=== PATIENT | female | born 1970 | race Caucasian/White ===

== ENCOUNTER 2016-07-22 19:03 | Emergency (ER) | payer OTHER ==
[~2016-07-22] VITALS: Ht 175.3 cm; Wt 115.5 kg
[~2016-07-22 19:03] MED LIST: BACLOFEN20 MG PO; CLINDAMYCIN HC300 MG PO; DAILY VITAMIN1 EAC8 PO; GILENYA0.5 MG PO; LEXAPRO20 MG PO; MANDELAMINE500 MG PO; MOBIC15 MG PO; SYNTHROID25 MCG PO; VITAMIN D32000 UNIT PO; ZANAFLEX2 M1 PO
[2016-07-22 22:03] VITALS: BP 121/78
== END 2016-07-22 22:04 | disposition home or self-care (01) ==
LOC: EME → EDBD 19:03 → EME 19:03
DX: S02.2XXA Fracture of nasal bones, initial encounter for closed fracture (principal); W05.0XXA Fall from non-moving wheelchair, initial encounter; Y92.811 Bus as the place of occurrence of the external cause; G35 Multiple sclerosis
CPT/HCPCS: 70450; 70486; 99281; 99285

== ENCOUNTER → 2017-10-19 | Outpatient (CLI) | payer OTHER ==
[~2017-10-19] VITALS: Ht 175.3 cm; Wt 113.4 kg
[~2017-10-19] MED LIST changes: +BACLOFEN10 MG PO; +BUPROPION HCL75 MG PO; +DANTRIUM25 MG PO; +LEVOTHYROXINE175 MCG PO; +SYNTHROID175 MCG PO
[2017-10-19 09:59] VITALS: BP 131/93
[2017-10-19 14:13] VITALS: BP 118/60
== END | disposition home or self-care (01) ==
LOC: OPR 09:00
DX: G35 Multiple sclerosis (principal); M50.30 Other cervical disc degeneration, unspecified cervical region; M41.9 Scoliosis, unspecified; R60.0 Localized edema
CPT/HCPCS: 70553; 72156; 72157; J2250